=== PATIENT | male | born 1995 | race American Indian/Alaskan Native ===

== ENCOUNTER 2024-07-15 01:39 | Emergency (ER) | payer SELFPAY ==
[~2024-07-15] VITALS: Ht 182.9 cm; Wt 113.0 kg
[2024-07-15 01:42] VITALS: BP 191/152; PULSE 102; RESP 16; TEMP 98.8; O2SAT 98
[2024-07-15] MEDS: ACETAMINOPHEN 325MG TABLET PO ONE (02:02)
[2024-07-15] MEDS: LOSARTAN 50 MG TABLET PO ONE (02:02)
== END 2024-07-15 02:04 | disposition home or self-care (01) ==
LOC: ER 01:39
DX: I10 Essential (primary) hypertension (principal)
CPT/HCPCS: 99283